=== PATIENT | male | born 1945 | race Caucasian/White ===

== ENCOUNTER 2019-03-12 06:35 | Outpatient (CLI) | payer MEDICARE ==
[~2019-03-12] VITALS: Ht 175.3 cm; Wt 80.0 kg
--- NOTE | ~2019-03-12 | HEMODYNAMI ---
PATIENT:NATALIYA RODRIGUEZ MEDICAL RECORD: [id number] : 49 LOCATION:[facility] ADMISSION DATE: 03/12/19 Generatedon:03/12/201910:18 Patient name: NATALIYA RODRIGUEZ Patient #: [id number] : 1945 Date of study: 03/12/2019 Page: Of Hemodynamic Procedure Report Patient Data Patient Demographics Procedure consent was obtained First Name: NATALIYA Gender: Male Last Name: JENNIFER : 1945 Middle Initial: D Age: 73 year(s) Patient #: [id number] Race: SSN: [id number] Additional ID: [id number] Contact details [address]: [address] [place] [address] [address] State: [place] City: [place] Zip code: [address] Past Medical History Allergies: No known allergies Admission Admission Data Admission Date: 03/12/2019 Admission Time: 6:35 Arrival Date: 03/12/2019 Arrival Time: 0:00 Admit Source: Other Insurance Payor: Medicare [facility] #: [id number] Height (in.): 69 BSA: 1.93 (m2) Height (cm.): 175.26 BMI: 25.1 (kg/m2) Weight (lbs.): 170 Weight (kg.): 77.11 Lab Results Lab Result Date: 03/12/2019 Lab Result Time: 0:00 Biochemistry Name Units Result Min Max BUN mg/dl 15 --(--*-)-- 7 18 Creatinine mg/dl 0.7 --(*---)-- 0.6 1.3 eGFR ml/min 90 --(*---)-- 90 120 AM eGFR ml/min 90 --(*---)-- 90 120 NONAFRICAN CBC Name Units Result Min Max Hemoglobin g/dl 10.9 *-(----)-- 13.5 17.5 Procedure Procedure Types Cath Procedure Diagnostic Procedure [facility] w/Coronaries Procedure Description Procedure Date Procedure Date: 03/12/2019 Procedure Start Time: 9:44 Procedure End Time: 10:14 Procedure Staff Name Function Sam Ramírez MD Performing Physician Jesica Fisher RT Monitor Rose Singh RT Monitor Suri Fuchs RN Nurse Jordyn Woodard RT Scrub Sukumar Perez CRNA Additional personnel Indication CAD Procedure Data Cath Procedure Fluoroscopy Diagnostic fluoroscopy Total fluoroscopy Time: 2 time: 2 min min Diagnostic fluoroscopy Total fluoroscopy dose: 649 dose: 649 mGy mGy Contrast Material Contrast Material Type Amount (ml) Isovue 300 94 Entry Location Entry Primary Successful Side Size Upsize Upsize Entry Closure Succes sful Closure Location (Fr) 1 (Fr) 2 (Fr) Remarks Device Remarks Femoral Right 5 Fr Exoseal artery Estimated blood loss: 5 ml Diagnostic catheters Device Type Used For End Catheter Placement MULTIPACK JL 4.0 5Fr Left Coronary catheter Angiography MULTIPACK 3DRC 5Fr Right Coronary catheter Angiography MULTIPACK Pigtail 5 Fr LV Angiography catheter Procedure Complications No complications Procedure Medications Medication Administration Route Dosage Oxygen etCO2 Nasal cannula 2 l/min Lidocaine 2% added to field 20 Heparin Flush Bag added to field 2 bags (1000units/500ml NS) 0.9% NaCl I.V. 100 ml/hr Refer to Anesthesia Notes for Sedation Medications Hemodynamics Rest BSA: 1.93 (m2) HGB: 10.9 (g/dl) O2 Consumption: Estimated: 232.69 (ml/min) O2 Co nsumption indexed: Estimated:120.56 (ml/min/m) Heart Rate: 83 (bpm) Pressure Samples Time Site Value (mmHg) Purpose Heart Use Rate(bpm) 9:56 LV 167/-4,20 Snapshot 97 9:57 AO 163/63(106) Pullback 97 9:57 LV 159/4,28 Pullback 97 Gradients Valve Time Site 1 Site 2 Mean SEP/DFP Peak To Heart Use (mmHg) (sec/min) Peak Rate (mmHg) (bpm) Aortic 9:57 LV AO 0 8 0 97 159/4,28 163/63(106) Calculations Valve P-P Mean Valve Index Valve Source Name Gradient Area Flow (cm2) Aortic 0 0 0 0 Snapshots Pre Cath Intra NCS Post Cath Vital Signs Time Heart Resp SPO2 etCO2 NIBP (mmHg) Rhythm Pain Sedation Rate (ipm) (%) (mmHg) Status Level (bpm) 9:11:31 80 11 97 32.3 168/83(124) NSR 0 (11) 10(A) , No pain 9:15:49 82 17 97 36 162/80(121) NSR 0 (11) 10(A) , No pain 9:20:09 84 14 97 21 139/82(123) NSR 0 (11) 10(A) , No pain 9:24:21 86 18 97 39.9 139/79(122) NSR 0 (11) 10(A) , No pain 9:28:33 85 16 96 26.3 159/79(136) NSR 0 (11) 10(A) , No pain 9:32:52 86 19 96 41.3 163/86(130) NSR 0 (11) 10(A) , No pain 9:37:12 87 18 96 33.8 163/83(130) NSR 0 (11) 10(A) , No pain 9:41:30 84 10 97 33.1 174/91(136) NSR 0 (11) 10(A) , No pain 9:45:40 91 16 94 18.8 161/89(130) NSR 0 (11) 9(A) , No pain 9:49:56 86 18 97 33.1 157/74(107) NSR 0 (11) 9(A) , No pain 9:55:28 92 17 95 37.6 168/72(112) NSR 0 (11) 9(A) , No pain 9:59:45 94 15 94 0.7 159/75(107) NSR 0 (11) 9(A) , No pain 10:04:04 96 16 94 0 165/82(110) NSR 0 (11) 9(A) , No pain 10:08:28 97 15 92 0 172/76(109) NSR 0 (11) 10(A) , No pain 10:14:02 96 15 96 21.8 157/78(108) NSR 0 (11) 10(A) , No pain Medications Time Medication Route Dose Verified Delivered Reason Notes Effe ctiveness by by 9:17:34 Oxygen etCO2 2 Sam Buffie used for Nasal l/min Darrell Fuchs electrical logging operator cannula 9:17:40 Lidocaine 2% added 20ml Sam Sam for local to vial Darrell Ramírez MD anesthetic field 9:17:47 Heparin Flush added 2 Sam Sam used for Bag to bags Darrell Ramírez MD procedure (1000units/500ml field NS) 9:17:57 0.9% NaCl I.V. 100 Sam Buffie Per ml/hr Darrell Fuchs RN physician 9:18:10 Refer to Sam Buffie Anesthesia Notes Darrell Fuchs RN for Sedation Medications Procedure Log Time Note 8:00:53 Informed consent obtained and on chart 8:04:31 Arrival Date: 03/12/2019 12:00:00 AM 8:05:43 Admit Source: Other 8:05:54 Insurance Payor : Medicare 8:06:02 Patient Height : 69 inches 8:06:12 Patient Weight : 170 lbs 8:53:52 Indication : CAD 8:54:01 Procedure Status Elective Heart Cath (OP). 8:54:05 Suri Fuchs RN sent for patient. Start room use. 8:54:08 Time tracking: Regular hours (M-F 7:00 - 5:00) 8:54:16 Plan of Care:Hemodynamics will remain stable., Cardiac rhythm will remain stable., Comfort level will be maintained., Respiratory function will remain adequate., Patient/ family verbilizes understanding of procedure., Procedure tolerated without complication., Recovers from procedure without complications.. 8:57:06 Lab Result : eGFR NONAFRICAN 90 ml/min 8:57:06 Lab Result : Hemoglobin 10.9 g/dl 8:57:06 Lab Result : eGFR AM 90 ml/min 8:57:06 Lab Result : BUN 15 mg/dl 8:57:06 Lab Result : Creatinine 0.7 mg/dl 8:58:07 ACC Patient presents with Stable Angina CCS Anginal Class 2--Slight limitation of ordinary activity. 8:58:52 ACCPatient has been prescribed/administered the following anti-anginal medication within the last 2 weeks: MIKE-Inhibitor 8:59:06 Patient received from Pre/Post Procedure Room to CCL 1 Alert and oriented. Tansferred to table in Supine position. 9:09:20 Warm blankets applied, and houston hugger turned on for patient comfort. 9:09:21 Correct patient and procedure confirmed by team. 9:09:22 ECG and BP/O2 sat monitors applied to patient. 9:09:23 Vital chart was started 9:09:26 Baseline sample Acquired. 9:09:35 Rhythm: sinus rhythm 9:09:38 Full Disclosure recording started 9:09:39 - 9:09:46 H&P Date Dictated: 03/12/2019 H&P Addendum completed by physician on da y of procedure. (MUST COMPLETE FOR ALL OUTPATIENTS), New H&P dictated by physician.. 9:09:49 Pre-procedure instructions explained to patient. 9:09:50 Pre-op teaching completed and patient verbalized understanding. 9:09:58 Family in waiting room. 9:10:02 Patient NPO since Midnight. 9:10:13 Patient allergic to No known allergies 9:10:20 Is the patient allergic to Iodine/contrast media? No. 9:10:24 Was the patient premedicated? Yes 9:10:29 Is patient on blood thinner?Yes 9:10:34 ACC The patient was administered the following blood thiners within the last 24 hours: ACCPlavix 9:10:36 Patient diabetic? Yes. 9:10:39 If diabetic: On Metformin? Yes 9:10:49 If on Metformin: Last Dose? 03/10/2019 9:10:52 ----Pre-sedation anethsthesia assessment.---- 9:10:59 Previous problem with sedation/anesthesia? No ? 9:11:06 Snore? Yes 9:11:08 Sleep apnea? No 9:11:11 Deviated septum? No 9:11:13 Opens mouth fully? Yes 9:11:16 Sticks out tongue? Yes 9:11:31 Airway obstruction? Yes copd/asthma 9:11:35 Dentures? Yes, IN TIGHT. ? 9:11:41 Pre procedure: right dorsailis pedis pulse 1+ Palpable, but thready & weak; easily obliterated 9:11:47 Pre procedure: left dorsailis pedis pulse 1+ Palpable, but thready & weak; easily obliterated 9:12:05 WEAK RADIAL. 9:12:11 Patient pain scale 0/10 ?. 9:12:31 IV patent on arrival in left wrist with 0.9% NaCl at [facility]. 9:12:40 Lab results completed and on chart. 9:15:40 Risk of Mortality: 0.2 9:15:46 Risk of blood transfusion: 1.1 9:15:52 Risk of UGO: 0.6 9:16:29 Right groin area was prepped with chlora-prep and draped in sterile fashion 9:16:34 Alarms reviewed by R. N. 9:16:35 Sharps counted by scrub and verified by R.N. 9:16:55 Use device set Femoral Dx 9:16:58 ACIST Syringe (72762) opened to sterile field. 9:16:58 Bag Decanter (2002S) opened to sterile field. 9:16:59 Medline Cath Pack ([id number]) opened to sterile field. 9:17:02 ACIST Hand Control (36638) opened to sterile field. 9:17:03 ACIST Manifold (84495) opened to sterile field. 9:17:04 DIAGNOSTIC Multipack 5Fr catheter set ([id number]) opened to sterile field. 9:17:05 Tegaderm 4 x 4 (1626W) opened to sterile field. 9:17:15 SHEATH 5FR [place] (FEM163) opened to sterile field. 9:17:16 EMERALD Guide Wire (392-487) opened to sterile field. 9:17:34 Oxygen 2 l/min etCO2 Nasal cannula was administered by Suri Fuchs RN; used for procedure; Verbal order read back and verified. 9:17:40 Lidocaine 2% 20ml vial added to field was administered by Sam Ramírez MD ; for local anesthetic; Verbal order read back and verified. 9:17:47 Heparin Flush Bag (1000units/500ml NS) 2 bags added to field was administered by Sam Ramírez MD; used for procedure; Verbal order read back and verified. 9:17:57 0.9% NaCl 100 ml/hr I.V. was administered by Suri Fuchs RN; Per physician; Verbal order read back and verified. 9:18:10 Refer to Anesthesia Notes for Sedation Medications was administered by Suri Fuchs RN; ; Verbal order read back and verified. 9:25:43 ACCPatient has been prescribed/administered the following anti-anginal medication within the last 2 weeks: Long-Acting Nitrates 9:36:56 Sukumar Perez CRNA present and monitoring patient for TIVA. 9:39:30 Zero performed for pressure channel P1 9:41:15 Physician arrived 9:41:17 --------ALL STOP TIME OUT------ 9:41:18 Final Timeout: patient, procedure, and site verified with staff and physician. All members of the team are in agreement. 9:41:21 Right groin site verified by team. 9:41:27 Fire Safety Assessment: A--An alcohol-based skin anteseptic being used preoperatively., C--Open oxygen or nitrous oxide is being used., D--An ESU, laser, or fiber-optic light is being used. 9:42:17 Physical assessment completed. ASA score P 3 - A patient with severe systemic disease as per Sam Ramírez MD. 9:42:24 1) 90+ Normal kidney functon but urine findings or structural abnormalities or genetic trait point to kidney disease. 9:42:29 Maximum allowable contrast dose (3.7 X eGFR X 0.75)250 ml. 9:42:46 Sedation plan: TIVA Medication:Propofol 9:44:48 Procedure started. 9:44:55 Local anesthetic to right femoral artery with Lidocaine 2% by Sam curry MD.INITIAL ACCESS ONLY 9:47:23 A 5 Fr sheath was inserted into the Right Femoral artery 9:47:57 A MULTIPACK JL 4.0 5Fr catheter was advanced over the wire and used for Left Coronary Angiography. 9:48:52 LCA angiography performed. 9:48:56 Injector settings: Ml/sec: 3, Volume: 6, 9:52:18 Catheter removed. 9:52:27 A MULTIPACK 3DRC 5Fr catheter was advanced over the wire and used for Right Coronary Angiography. 9:54:08 RCA angiography performed. 9:54:25 Injector settings: Ml/sec: 3, Volume: 6, 9:55:08 Catheter removed. 9:55:20 A MULTIPACK Pigtail 5 Fr catheter was advanced over the wire and used for LV Angiography. 9:56:30 LV gram done using AJ 9:56:43 LV hemodynamics recorded. 9:56:53 EF : 60 % 9:57:38 Injector settings: Ml/sec: 10, Volume: 20, 10:01:25 Catheter removed. 10:05:39 EXOSEAL 5Fr (EX500) opened to sterile field. 10:06:09 Sheath removed intact; hemostasis achieved with Exoseal to the Right Femoral artery. 10:06:14 Procedure ended.(Physican Out) 10:07:40 Fluoroscopy time 02.00 minutes. 10:07:47 Flurop Dose total: 649 10:07:47 Fluoroscopy dose: 649 mGy 10:07:55 Dose Area Product 32661 mGy/cm. 10:08:02 Contrast amount:Isovue 300 94ml. 10:08:07 Maximum allowable dose exceeded? No. 10:08:09 Sharps counted by scrub and verified by R.N. 10:08:14 Insertion/operative site no bleeding no hematoma. 10:08:20 Post-op/insertion site Right Femoral artery dressed using a 4 x 4 and Tegaderm. 10:08:28 Post right femoral artery:stable 10:08:34 Post Procedure Pulses reassessed and unchanged 10:08:59 Post-procedure physical assessment completed. ASA score P 3 - A patient with severe systemic disease as per Sam Ramírez MD. 10:09:04 Post procedure rhythm: unchanged. 10:09:08 Estimated blood loss: 5 ml 10:09:11 Post procedure instruction explained to patient.Patient verbalizes understanding. 10:09:12 Patient needs reinforcement of post procedure teaching. 10:09:47 Procedure and supply charges have been captured, reviewed, submitted an d are correct. 10:10:28 Procedure Complication : No complications 10:11:36 [facility] Findings: MVD- MD will discuss options w/ pt 10:13:18 Operative report dictated upon procedure completion. 10:13:22 See physician's report for complete and final results. 10:14:24 Vital chart was stopped 10:14:36 Report given to Pre/Post Procedure Room. 10:14:41 Patient transfered to Pre/Post Procedure Room with Stretcher. 10:14:45 Procedure ended. 10:14:45 Full Disclosure recording stopped 10:14:53 End room use (Document Last) Device Usage Item Name Manufacture Quantity Catalog Hospital Part Current Minimal L ot# / Number Charge Number Stock Stock Serial# Code ACIST Acist 1 27794 [id number] 195799 279609 20 Syringe Medical (45360) Systems Inc Bag Microtek 1 2001S 511139 35674 808937 5 Decanter Medical Inc. (2001S) Medline Medline 1 [id number] 60281 986276 5 Cath Pack ([id number]) ACIST Hand Acist 1 12085 333801 650078 997935 5 Control Medical (65642) Systems Inc ACIST Acist 1 44515 799209 104107 887215 5 Manifold Medical (88681) Systems Inc DIAGNOSTIC Cardinal 1 [id number] 078028 25349 083509 30 Multipack Health 5Fr catheter set (VG4709) Tegaderm 4 3M 1 1626W 500364 984186 990738 5 x 4 (1626W) SHEATH 5FR Terumo 1 MWC257 801580 386095 083603 5 [place] (BXB037) EMERALD Cardinal 1 502-455 473905 169042 146301 5 Guide Wire Health (502-455) MULTIPACK Cardinal 1 800566 5 JL 4.0 5Fr Health catheter MULTIPACK Cardinal 1 [id number] 5 3DRC 5Fr Health catheter MULTIPACK Cardinal 1 [id number] 5 Pigtail 5 Health Fr catheter EXOSEAL 5Fr Cardinal 1 EX500 149699 054362 802519 10 (EX500) Health Signature Audit [place] Stage Time Signature Unsigned Intra-Procedure 03/12/2019 Rose 10:15:24 AM Francisco RT(R) (CV) Intra-Procedure 03/12/2019 Suri Fuchs RN 10:17:22 AM Intra-Procedure 03/12/2019 Sam Ramírez MD 10:18:23 AM [facility] [address] [facility] [place] [address]
[~2019-03-12 06:35] MED LIST: GLUCOPHAGE500 MG PO
[2019-03-12] MEDS ORDERED: PEPCID AC20 MG PO (07:15)
[2019-03-12] MEDS ORDERED: PLAVIX75 MG PO (07:15)
[2019-03-12] MEDS ORDERED: LIPITOR40 MG PO (07:15)
[2019-03-12] MEDS ORDERED: LOPID600 MG PO (07:15)
[2019-03-12] MEDS ORDERED: FUROSEMIDE40 MG PO (07:15)
[2019-03-12] MEDS ORDERED: GLUCOPHAGE1000 MG PO (07:16)
[2019-03-12] MEDS ORDERED: LISINOPRIL20 MG PO (07:16)
[2019-03-12] MEDS ORDERED: SINGULAIR10 MG PO (07:17)
[2019-03-12] MEDS ORDERED: TOPROL XL25 MG PO (07:17)
[2019-03-12] MEDS ORDERED: RESTORIL15 MG PO (07:17)
[2019-03-12 07:34] VITALS: BP 157/90; Ht 175.3 cm; Wt 80.0 kg
[2019-03-12 08:24] LABS: BASOPHILS 0.3 % (0-2); EOSINOPHILS 4.3 % (0-7); HEMATOCRIT 32.9 % (42.0-54.0); HEMOGLOBIN 10.9 g/dL (13.5-17.5); IMMATURE GRANULOCYTES 0.3 % (0-5); LYMPHOCYTES 38.6 % (15-50); MCH 34.7 pg (26.0-34.0); MCHC 33.1 g/dL (31.0-37.0); MCV 104.8 fL (80.0-100.0); MEAN PLATELET VOLUME 11.6 fL (7.4-10.4); MONOCYTES 10.4 % (2-11); NEUTROPHILS 46.1 % (40-80); PLATELET COUNT 220 10x3/uL (130-400); RBC 3.14 10x6/uL (4.20-6.10); RDW 14.1 % (11.5-14.5); WBC 6.3 10x3/uL (4.8-10.8)
[2019-03-12 08:38] LABS: ALT (SGPT) 20 U/L (10-68); CALC OSMOLALITY 281 mosm/kg (275-300); CALCIUM 8.6 mg/dL (8.5-10.1); CARBON DIOXIDE 25.4 mmol/L (21.0-32.0); CHLORIDE - SERUM 107 mmol/L (98-107); CHOL - HDL RATIO 5.1 ratio (2.3-4.9); CHOLESTEROL, TOTAL 133 mg/dL (0-200); CREATININE - SERUM 0.7 mg/dL (0.6-1.3); GLUCOSE 153 mg/dL (74-106); HDL CHOLESTEROL 26 mg/dL (32-96); POTASSIUM - SERUM 4.1 mmol/L (3.5-5.1); SODIUM 139 mmol/L (136-145); TRIGLYCERIDE 405 mg/dL (30-200); UREA NITROGEN 15 mg/dL (7-18); eGFR NON AFRICAN AMERICAN > 90 mL/min (90-120)
--- NOTE | 2019-03-12 10:25 | NUR ---
PT RECEIVED VIA STRETCHER FROM MANAGER WELDING POST ANGIOGRAM FOR RECOVERY. PT AWAKE BUT DROWSY. PT PLACED ON CARDIAC MONITORS AND O2 AT 2L/NC. HR NSR RATE 86, BP 156/77, RR 16, O2 SAT 97. PT DENIES PAIN OR DISCOMFORT. 5FR EXOCELE TO R GROIN, DRESSING CDI NO BLEEDING OR HEMATOMA NOTED. DR TINSLEY IN ROOM AND SPOKE WITH PT'S S/O REGARDING PROCEDURE RESULTS AND PLAN OF CARE. IV PATENT INFUSING VIA ORDERS. PT INSTRUCTED TO KEEP HEAD ON PILLOW AND LEG STRAIGHT, HE VERBALIZED UNDERSTANDING. CALL LIGHT IN REACH
--- NOTE | 2019-03-12 10:41 | NUR ---
PT RESTING COMFORTABLY W/O COMPLAINTS. R GROIN SOFT, DRESSING CDI NO BLEEDING OR SWELLING NOTED. PEDAL PULSES PALPABLE. PO FLUIDS GIVEN. VSS. CALL LIGHT IN REACH, S/O AT BEDSIDE.
[2019-03-12 10:47] LABS: PLT FUNCT.(P2Y12) PLAVIX 255 PRU (194-418)
--- NOTE | 2019-03-12 11:18 | NUR ---
R GROIN SOFT, NO BLEEDING OR SWELLING NOTED. DR TINSLEY AT BEDSIDE DISCUSSING PLAN OF CARE W PT. HOB ELEVATED SLIGHTLY. PT VOIDED 300CC CLEAR YELLOW URINE IN URINAL. DENIES PAIN OR ADD'L NEEDS AT THIS TIME. VSS S/O AT BEDSIDE
--- NOTE | 2019-03-12 11:41 | NUR ---
HOB ELEVATED A LITTLE MORE. R KALEIGH REMAINS SOFT, DRESSING CDI NO BLEEDING OR HEMATOMA NOTED. LEG PINK AND WARM, PEDAL PULSES PALPABLE. HR 80, BP 148/76, O2 REMOVED, SAT ON RA 96. TOLERATED SANDWICH W/O NAUSEA. PT DENIES PAIN OR NEEDS AT THIS TIME. CALL LIGHT REMAINS IN REACH
--- NOTE | 2019-03-12 12:23 | NUR ---
DISCHARGE INSTRUCTIONS REVIEWED W S/O AND PT AND BOTH VERBALIZED UNDERSTANDING. IV REMOVED W CATH INTACT, MONITORS REMOVED. PT UP TO DRESS FOR DISCHARGE.
--- NOTE | 2019-03-12 12:30 | NUR ---
PT DISCHARGED VIA WC TO S/O IN PRIVATE VEHICLE. PT HAD ALL BELONGINGS, DISCHARGE PAPERWORK AND DR BURNS PAPERWORK IN HAND. PT ALSO HAD ALL PERSONAL BELONGINGS.
== END 2019-03-12 12:30 | disposition home or self-care (01) ==
LOC: D.CATH 06:35
PROVIDERS: ATTEND Internal Medicine Cardiovascular Disease
DX: I25.110 Atherosclerotic heart disease of native coronary artery with unstable angina pectoris (principal)

== ENCOUNTER 2019-03-17 09:50 | Inpatient (IN) | payer MEDICARE ==
[~2019-03-17] VITALS: Ht 175.3 cm; Wt 83.5 kg
[~2019-03-17 09:50] MED LIST changes: +FUROSEMIDE40 MG PO; +GLUCOPHAGE1000 MG PO; +LIPITOR40 MG PO; +LISINOPRIL20 MG PO; +LOPID600 MG PO; +PEPCID AC20 MG PO; +PLAVIX75 MG PO; +RESTORIL15 MG PO; +SINGULAIR10 MG PO; +TOPROL XL25 MG PO
[2019-03-17 12:42] LABS: BASOPHILS 0.3 % (0-2); EOSINOPHILS 4.4 % (0-7); HEMATOCRIT 35.9 % (42.0-54.0); HEMOGLOBIN 12.1 g/dL (13.5-17.5); IMMATURE GRANULOCYTES 0.3 % (0-5); LYMPHOCYTES 44.6 % (15-50); MCH 35.5 pg (26.0-34.0); MCHC 33.7 g/dL (31.0-37.0); MCV 105.3 fL (80.0-100.0); MEAN PLATELET VOLUME 11.3 fL (7.4-10.4); MONOCYTES 8.2 % (2-11); NEUTROPHILS 42.2 % (40-80); PLATELET COUNT 224 10x3/uL (130-400); RBC 3.41 10x6/uL (4.20-6.10); RDW 14.2 % (11.5-14.5); WBC 6.8 10x3/uL (4.8-10.8)
[2019-03-17 13:02] LABS: APTT 27.5 SECONDS (22.8-39.4); INR 0.97 (0.85-1.17); PROTIME 12.4 SECONDS (11.6-15.0)
[2019-03-17 13:19] LABS: ALBUMIN 3.8 g/dL (3.4-5.0); ALKALINE PHOSPHATASE 60 U/L (46-116); ALT (SGPT) 26 U/L (10-68); APPEARANCE CLEAR (CLEAR); BILIRUBIN NEGATIVE (NEGATIVE); CALC OSMOLALITY 279 mosm/kg (275-300); CALCIUM 8.7 mg/dL (8.5-10.1); CARBON DIOXIDE 28.6 mmol/L (21.0-32.0); CHLORIDE - SERUM 104 mmol/L (98-107); CHOLESTEROL, TOTAL 219 mg/dL (0-200); COLOR YELLOW (YELLOW); CREATININE - SERUM 0.9 mg/dL (0.6-1.3); GLUCOSE 114 mg/dL (74-106); GLUCOSE NEGATIVE (NEGATIVE); KETONE NEGATIVE (NEGATIVE); NITRITE NEGATIVE (NEGATIVE); PHOSPHOROUS 3.5 mg/dL (2.5-4.9); POTASSIUM - SERUM 4.5 mmol/L (3.5-5.1); PROTEIN NEGATIVE (NEGATIVE); PROTEIN - SERUM 7.9 g/dL (6.4-8.2); SODIUM 139 mmol/L (136-145); SPECIFIC GRAVITY 1.015 (1.005-1.020); T4 THYROXIN - FREE 0.81 ng/dL (0.76-1.46); UREA NITROGEN 15 mg/dL (7-18); URIC ACID 7.9 mg/dL (2.6-7.2); UROBILINOGEN NORMAL (NORMAL); eGFR NON AFRICAN AMERICAN 88 mL/min (90-120)
[2019-03-17 14:00] LABS: PLT FUNCT.(P2Y12) PLAVIX 273 PRU (194-418)
[2019-03-24] VITALS (41 sets, daily range): BP systolic 101–154; BP diastolic 48–86; BMI 25.5; BMI 32.1
[2019-03-24] MEDS ORDERED: NITROSTAT0.3 MG SL (06:11)
[2019-03-24] MEDS ORDERED: ZICAM (06:12)
[2019-03-24] MEDS ORDERED: BENADRYL25 MG PO (06:13)
[2019-03-24] MEDS ORDERED: ZYRTEC10 MG PO (06:13)
[2019-03-24] MEDS ORDERED: ADVIL200 MG PO (06:14)
[2019-03-24] MEDS ORDERED: BAYER CHEWABLE81 MG PO (06:15)
[2019-03-24 15:32] LABS: INR 1.23 (0.85-1.17)
--- NOTE | 2019-03-24 17:58 | NUR ---
1430-RECIEVED INTO CV5-ACCOMPANIED BY HEART TEAM-PLACED TO MONITOR SR-VENT PER RT-SOFT WRIST RESTRAINTS TO PROTECT AIRWAY-SEE GTT SHEET FOR IV FLUIDS-SCANT DRAINAGE TO CHEST TUBES-20CM SUCTION-NO AIRLEAK DETECTED-BK DRAIN SMALL EEYE-YAWRWKDSND-ABVI NOTIFIED FOR PORT CXR -DR SMITH AT [facility] 1445-XRAY COMPLETED -PT SPONT OPENED HAKS-ZGM-VHFQCTMOL TO 150 SYS-ORDERS RECIEVED FROM DR SMITH-CLEVIPREX STARTED -NTG AT 25MCG/MIN- 1515-NTG TURNED OFF-CLEVIPREX AT 2MG/MIN-DR SMITH AT [facility] -ADDRESSED FAMILY REGARDING SURGERY AND FINDINGS-STRESSED PT LIFESTYLE CHANGES NEED TO BE DONE- ORDER RECIEVED MORPHINE 2MG IVP- DIRECTED BY DR SMITH 1545-CLEVIPREX TURNED OFF 1630-DR SMITH NOTIFIED OF CI CHANGES 1.9-2.1-DOBUTREX GTT OFF DIRECTED 1800-PT AWAKE AND [id number] WELL
--- NOTE | 2019-03-24 18:32 | NUR ---
DR SMITH NOTIFIED OF CURRENT STATUS AND EXTUBATION PROTOCOL-DIRECTED TO KEEP SYS BP 120'S WITH NITRO-CONFIRMED REMOVAL OF SWAN MIKE AND CAP OFF
--- NOTE | 2019-03-24 19:19 | NUR ---
1900-EXTUBATED BY RT PER PROTOCOL-SHAYLA MCKEON D/C ORDERED PER PROTOCOL-RESTRAINTS REMOVED
--- NOTE | 2019-03-24 20:00 | NUR ---
PT IS AWAKE AND ALERT. C/O PAIN. MORPHINE GIVEN PER ORDER. PT REPORT A LITTLE RELIEF BUT SAYS HE IS STILL HURTING PRETTY BAD.
--- NOTE | 2019-03-24 23:30 | NUR ---
PT ASSISTED TO SIDE OF BED FOR 10 MIN. TOLERATED WELL
[2019-03-25] VITALS (76 sets, daily range): BP systolic 100–170; BP diastolic 48–96; Ht 175.3 cm; Wt 83.5 kg
--- NOTE | 2019-03-25 | NUR ---
PT TURNS WITH MINIMAL ASSISTANCE FREQUENTLY. SUPPORTED WITH PILLOWS.
--- NOTE | 2019-03-25 03:30 | NUR ---
ASSISTED TO SIDE OF BED. TOLERATED WELL
--- NOTE | 2019-03-25 06:00 | NUR ---
FSBS HAS BEEN IN TARGET RANGE FOR LAST 4 BLOOD SUGARS. NEXT CHECK DUE IN 2 HRS.
[2019-03-25 06:19] LABS: HEMOGLOBIN 10.5 g/dL (13.5-17.5); MCH 32.9 pg (26.0-34.0); MCHC 32.8 g/dL (31.0-37.0); MCV 100.3 fL (80.0-100.0); MEAN PLATELET VOLUME 10.3 fL (7.4-10.4); RBC 3.19 10x6/uL (4.20-6.10)
--- NOTE | 2019-03-25 06:40 | NUR ---
PT BATHED, LINEN CHANGED. ASSISTED TO CHAIR AT BEDSIDE. TOLERATED WELL. NITRO GTT RESTARTED AT 5 MCG/MIN.
[2019-03-25 06:51] LABS: ALKALINE PHOSPHATASE 49 U/L (46-116); ALT (SGPT) 30 U/L (10-68); BILIRUBIN - TOTAL 0.33 mg/dL (0.2-1.3); CALC OSMOLALITY 283 mosm/kg (275-300); CALCIUM 7.2 mg/dL (8.5-10.1); CARBON DIOXIDE 26.3 mmol/L (21.0-32.0); CHLORIDE - SERUM 106 mmol/L (98-107); CREATININE - SERUM 0.8 mg/dL (0.6-1.3); GLUCOSE 157 mg/dL (74-106); POTASSIUM - SERUM 4.3 mmol/L (3.5-5.1); PROTEIN - SERUM 6.3 g/dL (6.4-8.2); SODIUM 141 mmol/L (136-145); UREA NITROGEN 13 mg/dL (7-18); eGFR NON AFRICAN AMERICAN > 90 mL/min (90-120)
--- NOTE | 2019-03-25 07:00 | NUR ---
AWAKE AND ALERT. COMPLIANTING OF PAIN SKIN WARM AND DRY. UP IN CHAIR AT BEDSIDE. RIGHT IJ CENTRAL LINE INFUSING WITH PLASMALYTE AT 100 ML HOUR. NTG GTT AT 5 MCG/HOUR. INSULIN GTT AT 3 UNITS HOUR. CORDARON GTT AT 0.5MCG HOUR. ZINCEF AT 11.5ML HOUR. CHEST AND SUBSTERNAL DRESSING DRY AND INTACT CHEST TUBES X 3 TO 20 CM SUCTION SERSANG DRAINAGE. BK DRAIN INTACT BULB COMPRESSED BLOODY DRAINAGE IN CONTAINER SMALL AMOUNT. MARINELLI CATH PATENT DRAINING CLEAR RIDDHI URINE. IS TO 500 ML HOUR. MONITOR SR. REPOSITIONED NUMBEROUS TIMES PATIENT TRYING TO GET COMFORTABLE. CUSHION IN CHAIR, STATES HIS BUTT IS SO UNCOMFORTABLE. THEN STATES HIS BACK IS UNCOMFORTABLE.
--- NOTE | 2019-03-25 08:00 | NUR ---
PAIN MEDS GIVEN MINIMAL IMPROVEMENT NOTED. WEAK COUGH UNPRODUCTIVE.
--- NOTE | 2019-03-25 09:00 | NUR ---
REPOSITIONED NUMBEROUS TIMES STILL UNABLE TO GET COMFORTABLE WITH PAIN MEDS. IV MORPHINE GIVEN FREQ.
--- NOTE | 2019-03-25 10:00 | NUR ---
DR. SMITH HERE. ORDERS TO DISCONTINUE BLANK, STOP INSULIN GTT, SLIDING SCALE INSULIN. WEAN OFF NTG GTT PER CUFF BP. NOTIFIED OF CONTINUOS PAIN.
--- NOTE | 2019-03-25 10:27 | OP ---
PATIENT NAME: NATALIYA RODIRGUEZ MEDICAL RECORD: [id number] :49 LOCATION:[facility] ADMISSION DATE:03/24/19 SURGEON: RAHUL SMITH MD DATE OF OPERATION: 03/24/2019 SURGEON: Rahul Smith MD WATER PURIFIER OPERATOR: Sonu Tse. PROCEDURE PERFORMED: Coronary artery bypass graft times 3 (left internal mammary artery to LAD, reverse saphenous vein graft from aorta to obtuse marginal and aorta to posterior descending artery) endoscopic saphenous vein harvest. PREOPERATIVE DIAGNOSIS: Coronary artery disease. POSTOPERATIVE DIAGNOSIS: Coronary artery disease and severe hypertriglyceridemia. ANESTHESIA: General endotracheal anesthesia. ESTIMATED BLOOD LOSS: Total cardiopulmonary bypass with Cell Saver retransfusion, platelet 1 pack on fresh frozen plasma, and 2 packed red blood cells. COMPLICATIONS: None. SPECIMENS: None. CONDITION: Stable. DISPOSITION: CV-ICU. OPERATIVE FINDINGS: 1. Transesophageal echocardiography with trace AI and mitral regurgitation, good contractility and moderate left ventricular hypertrophy. 2. Good quality greater saphenous vein harvested endoscopically from the right lower extremity. 3. Layering blood and triglycerides consistent with severe hypertriglyceridemia, intraoperative triglyceride level greater than 900. 4. Distal ascending aortic plaque anteriorly and posteriorly. 5. LAD 2.0 mm with severe disease, good quality left internal mammary artery. 6. Obtuse marginal 1.5 mm vessel with severe disease. The ongoing circumflex vessel was small. 7. No acute marginal seen in large fatty heart. The PDA was 1.0 mm with bypass and a severe plaque and would not expect long-term patency of this graft. Posterolateral was not bypassable due to severe disease. 8. Separation cardiopulmonary bypass with no vasopressors, low dose dobutamine used briefly and discontinue in the ICU. OPERATIVE INDICATION: Coronary artery disease. OPERATIVE SUMMARY IN DETAIL: The patient was brought to the operating suite. General anesthesia was obtained. The patient was prepped and draped. Greater saphenous vein harvested endoscopically right lower extremity. Side branches OPERATIVE REPORT [id number] NATALIYA RODRIGUEZ were divided with electrocautery. The vessel was ligated proximally and distally, and removed. Side branches were tied and thin sites were oversewn. The leg was later closed in 2 layers. Median sternotomy incision was made. Subcutaneous tissue was divided with electrocautery. Sternum was divided with a saw. Left hemisternum was elevated. Left pleural cavity was entered. Left internal mammary artery and vein was taken down as a pedicle graft. Sternal retractor was placed. Pericardium was opened. Heparin was given. Aorta was cannulated. Dual stage venous cannula was inserted. The internal mammary was clipped distally and made ready for anastomosis. Activated clotting time was appropriately elevated. The patient was placed on cardiopulmonary bypass. Sites for distal anastomosis were selected. Retrograde cardioplegic cannula was inserted. Antegrade cardioplegic cannula was inserted. Crossclamp was placed. Cardioplegia was given antegrade and retrograde. After retrograde cardioplegia, there appeared to be some leakage from the distal coronary sinus that was oversewn with a pledgeted suture in that location. Antegrade cardioplegia was repeated at 50 minutes including down the completed vein graft. Distal anastomosis was performed in standard technique. Proximal anastomosis with single cross-clamp technique. Aortic root de-aired and flow restored. Proximal and distal anastomotic sites inspected for bleeding. The patient fully rewarmed, weaned from cardiopulmonary bypass stable. The patient was decannulated. The cannula sites were oversewn. Protamine was given. The graft lay appropriately. Hemostasis was ensured. Drains were placed in the mediastinum and left pleural cavity. Ventricular pacing wires were placed. Pericardial fat was loosely reapproximated in the midline. The internal mammary harvest was inspected for bleeding. The left chest was evacuated and irrigated. Sternum was closed with wires. Fascia was closed. Subcutaneous tissue was closed. Skin was closed. Dermabond was placed. The needle and sponge counts reported correct. The patient was taken to ICU in stable condition. TRANSINT:[id number] Voice Confirmation ID: [id number] DOCUMENT ID: [id number] RAHUL SMITH MD at 1027 CC: ROMULO ORO DO and MARCUS TINSLEY M.D. [id number] DICTATION DATE: 03/24/19 1500 RANGE MANAGER: 03/24/19 2143 ADM IN [facility] [address] [place] [address]
--- NOTE | 2019-03-25 11:00 | NUR ---
BLANK TRUJILLO'Fannie. INSULIN GTT OF. NTG GTT WEANED OFF. CONTINUE TO GIVE IV PAIN MEDS. WITH MINIMAL RELIEVE. FAMILY HERE UP DATE GIVEN. FEW BITES OF JELLO GIVEN. SIPS OF DIET COKE GIVEN
--- NOTE | 2019-03-25 12:00 | NUR ---
RETURNED TO BED WITH ASSISTANCES OF 2 NURSES. CENTRAL LINE DRESSING CHANGE IN BODY FORMER. PATIENT TOLERATED WELL. PO PAIN MEDS GIVEN WITH IV MORPHINE. CHEST TUBES REMOVED BY DEVANTE. PATIENT TOLERATED FAIR. NEW DRESSING APPLIED. BK INTACT BULB COMPRESSED. PACER WIRE SECURE TO SUBSTERNAL.
--- NOTE | 2019-03-25 14:00 | NUR ---
RESTING MORE COMFORTABLY. NAPPING AT INTERVALS. REPOSITIONED FOR COMFORT.
--- NOTE | 2019-03-25 16:00 | NUR ---
SAT UP ON SIDE OF BED PER PATIENT REQUEST. ENCOURAGE TO TAKE DEEP BREATH AND COUGH. WEAK COUGH FAIR EFFORT. TOLERATED FAIR. TOLERATES RETURNING TO BE POORLY. BK WITH MINIMAL DRAINAGE. DRESSINGS MID CHEST AND SUBSTERNAL DRY AND INTACT.
--- NOTE | 2019-03-25 18:00 | NUR ---
patient requesting more pain meds, states it has been over an hour. informed it has has only been 15 min. it is too early for pain meds.
--- NOTE | 2019-03-25 18:18 | MORECARE ---
CASE MANAGEMENT DISCHARGE SUMMARY PATIENT: NATALIYA RODRIGUEZ UNIT: [id number] ADM DATE: 03/24/19 AGE: 73 : 49 SEX: M ROOM/BED: [facility] AUTHOR: TESSY JONAS PHYSICIAN: REFERRING PHYSICIAN: ERIK SMITH MD DATE OF SERVICE: 03/25/19 Discharge Plan Patient Name: NATALIYA RODRIGUEZ [facility] : 1945 Planned Disposition: Anticipated Discharge Date: Discharge Date: Expected LOS: Initial Reviewer: [email or web address] Initial Review Date: 03/24/2019 Generated: 03/25/19 7:18 pm Comments DCP- Discharge Planning Updated by [id number]: Claudine Tran on 03/25/19 5:[address] CM attempted to meet with patient regarding discharge planning. Patient requested CM come back at a later time, he stated he is hurting to bad at this time. CM will continue to follow and assist as needed with discharge planning / needs Patient Name: NATALIYA RODRIGUEZ Page [phone] at 1818 All edits/amendments must be made on the electronic document DICTATION DATE: 03/25/191817 NURSING PROGRAM COORDINATOR: LEO 03/25/191817 RPT#: [id number] DC DATE: STATUS: ADM IN [facility] [address] [place] [address] END OF REPORT
--- NOTE | 2019-03-25 19:00 | NUR ---
SHIFT ASSESSMENT COMPLETE. PT IS SITTING UP IN BED, A&O X4, AND STATES THAT HE IS IN PAIN. REVIEWED HIS eMAR WITH HIM AND TOLD HIM WHEN HE COULD HAVE HIS NEXT DOSE OF PAIN MEDS. HE STATED THAT HE UNDERSTANDS. R IJ CVL S/L. RR SHALLOW, CRACKLES HEARD BILAT THROUGHOUT ALL LOBES. NC ON AT 2L/MIN HUMIDIFIED O2. S1S2 AUDIBLE, HR 105 SINUS TACH SHOWING ON MONITOR. MIDSTERNAL DRESSING CDI. SUBSTERNAL DRESSING CDI, BK DRAIN NOTED WITH SEROSANG FLUID, COMPRESSED. ABD SOFT, NONTENDER TO TOUCH, BS ACTIVE X4. CRITICORE MARINELLI INTACT DRAINING CONCENTRATED RIDDHI URINE. EUGENE HOSE ON. R LEG HARVEST SITES WELL APPROXIMATED. RADIAL AND PEDAL PULSES PALP. DRESSING ON R WRIST CDI. CALL LIGHT IN REACH, BED IN LOWEST POSITION. NO FURTHER NEEDS AT THIS TIME. WILL CONT WITH POC.
--- NOTE | 2019-03-25 19:10 | NUR ---
IS USE X10, WEAK EFFORT, 250-500 ML INSPIRED. WILL CONT TO ENCOURAGE IS USE.
--- NOTE | 2019-03-25 20:00 | NUR ---
SPOKE WITH DR. SMITH AND UPDATED HIM ON THE CHANGES. NEW ORDERS RECIEVED.
--- NOTE | 2019-03-25 21:00 | NUR ---
IS USE X10, WEAK EFFORT, 250-500 ML. PO MEDS TAKEN WITHOUT DIFFICULTY. REPOSITIONED FOR COMFORT. PARTIAL LINEN CHANGE PROVIDED. NO FURTHER NEEDS AT THIS TIME. WILL CONT WITH POC.
--- NOTE | 2019-03-25 22:00 | NUR ---
R IJ CVL DRESSING CHANGE VIA ROTOR BALANCER. PT TOLERATED WELL, DATED AND LABELED.
--- NOTE | 2019-03-25 23:00 | NUR ---
REASSESSMENT COMPLETE. NO CHANGES IN PT CONDITION. WILL CONT TO TITRATE NITRO GTT PER ORDERS. SEE FLOWSHEET FOR FURTHER DETAILS. VSS. CALL LIGHT IN REACH, WILL CONT WITH POC.
--- NOTE | 2019-03-25 23:44 | NUR ---
PRN PAIN MEDS ADMIN PER EMAR. REPOSITIONED FOR COMFORT. WILL CONT WITH POC.
[2019-03-26] VITALS (37 sets, daily range): BP systolic 88–137; BP diastolic 43–85
--- NOTE | 2019-03-26 01:00 | NUR ---
PT RESTING PEACEFULLY WITH NO SIGNS OF ACUTE DISTRESS NOTED. VSS. WILL CONT WITH POC.
--- NOTE | 2019-03-26 02:45 | NUR ---
PT STATES THAT HE IS FEELING NAUSEATED AND WOULD NOT DO HIS BREATHING TREATMENT. EDUCATED HIM ON THE BENEFITS OF THE [place]. PRN ZOFRAN ADMIN. NO FURTHER NEEDS AT THIS TIME. WILL CONT WITH POC.
--- NOTE | 2019-03-26 03:00 | NUR ---
REASSESSMENT COMPLETE. VSS. NO CHANGES IN PT CONDITION. SEE IV FLOWSHEET FOR NITRO GTT TITRATION. REPOSITIONED FOR COMFORT. NO NEEDS AT THIS TIME. WILL CONT TO MONITOR CLOSELY.
--- NOTE | 2019-03-26 03:33 | NUR ---
IS USE X10, BETTER EFFORT. 500 ML. WILL CONT TO ENCOURAGE IS USE.
--- NOTE | 2019-03-26 04:15 | NUR ---
NITRO GTT TITRATED OFF. BP 106/54, HR 93. WILL CONT TO MONITOR CLOSELY.
--- NOTE | 2019-03-26 05:00 | NUR ---
CHG BATH AND COMPLETE LINEN CHANGE PROVIDED. SUBSTERNAL DRESSING CHANGE PROVIDED PER ORDERS. PT UP IN CHAIR, GAIT STEADY, PARTIAL ASSIST. NO FURTHER NEEDS AT THIS TIME. WILL CONT WITH POC.
[2019-03-26 06:27] LABS: HEMATOCRIT 30.2 % (42.0-54.0); HEMOGLOBIN 9.8 g/dL (13.5-17.5); MCH 33.8 pg (26.0-34.0); MCHC 32.5 g/dL (31.0-37.0); MEAN PLATELET VOLUME 10.6 fL (7.4-10.4); RBC 2.9 10x6/uL (4.20-6.10); RDW 16.9 % (11.5-14.5); WBC 13.9 10x3/uL (4.8-10.8)
[2019-03-26 06:46] LABS: MCV 104.1 fL (80.0-100.0)
[2019-03-26 06:52] LABS: ALBUMIN 2.9 g/dL (3.4-5.0); ALKALINE PHOSPHATASE 52 U/L (46-116); ALT (SGPT) 28 U/L (10-68); BILIRUBIN - TOTAL 0.68 mg/dL (0.2-1.3); CALC OSMOLALITY 278 mosm/kg (275-300); CALCIUM 7.8 mg/dL (8.5-10.1); CARBON DIOXIDE 30.1 mmol/L (21.0-32.0); CHLORIDE - SERUM 102 mmol/L (98-107); GLUCOSE 166 mg/dL (74-106); PROTEIN - SERUM 6.7 g/dL (6.4-8.2); SODIUM 137 mmol/L (136-145); UREA NITROGEN 16 mg/dL (7-18); eGFR NON AFRICAN AMERICAN 78 mL/min (90-120)
--- NOTE | 2019-03-26 07:25 | NUR ---
SHIFT REPORT RECEIVED. PT UP IN CHAIR. ALERT AND ORIENTED. RATES PAIN 5/10 MOSTLY ON HIS BUTTOCKS. ON 2L O2 VIA NC. MIDSTERNAL INCISION WITH DRESSING C/D/I. SUBTERNAL DRESSING C/D/I. TPM WIRES COILED AND SECURED. LEFT BK DRAIN WITH SCANT AMOUNT OF SEROSANG DRAINAGE NOTED. RLE HARVEST SITES COAL BRIQUETTE MACHINE OPERATOR. WELL APPROXIMATED, NO SIGNS OF INFECTION NOTED. MARINELLI IN PLACE WITH CONCENTRATED URINE NOTED. CALL LIGHT IN REACH. WILL CONTINUE TO MONITOR.
--- NOTE | 2019-03-26 08:17 | NUR ---
Called received from Michael Steve pt's son. Brief update given. Call ligque answered pt asked to be sat up in chair. Coughed up scant amount of thick, arriaga mucus.
--- NOTE | 2019-03-26 08:35 | NUR ---
AM MEDS GIVEN. RATES PAIN 5/10. PERCOCET 10MG TAB GIVEN PER ORDERS. WILL CONTINUE TO MONITOR.
--- NOTE | 2019-03-26 09:10 | NUR ---
CALL LIGHT ANSWERED. ASSISTED PT TO STAND UP TO REPOSITION IN CHAIR. PT STATES THAT THE CHAIR IS UNCOMFORTABLE. EGG CRATE CUSHION IS IN PLACE. WILL CONTINUE TO MONITOR.
--- NOTE | 2019-03-26 10:24 | NUR ---
PT COMPLAINING OF BEING TIRED AND NOT GETTING ANY SLEEP DURING THE NIGHT. TRANSFERRED TO BED A THIS TIME. WILL GET BACK UP FOR LUNCH TIME. PULLS 500 ON I.S. WILL CONTINUE TO MONITOR.
--- NOTE | 2019-03-26 10:37 | NUR ---
DR. SMITH AT BEDSIDE. ORDERED TO LEAVE CATHETER IN FOR ACCURATE I&O.
--- NOTE | 2019-03-26 12:20 | NUR ---
AMBULATED WITH PT FROM ROOM TO NURSES DESK AND BACK TO CHAIR.
--- NOTE | 2019-03-26 13:38 | NUR ---
CALL LIGHT ANSWERED. PT WANTING TO GO BACK TO BED. INSTRUCTED THAT HE NEEDS TO STAY OUT OF BED MUCH POSSIBLE. PILLOW APPLIED UNDER LEGS. RATES PAIN IN LEGS 8/10 BURNING SENTATION. PERCOCET 10MG PO GIVEN. WILL CONTINUE TO MONITOR.
--- NOTE | 2019-03-26 14:05 | NUR ---
PT WANTING TO GO BACK TO BED. TEACHING PROVIDED ON REASON FOR BEING OUT OF BED. REPOSITIONED CHAIR FOR COMFORT. WILL CONTINUE TO MONITOR.
--- NOTE | 2019-03-26 15:27 | NUR ---
CALL LIGHT ANSWERED. REPOSITIONED CHAIR FOR COMFORT. COUGHED UP THICK, BAUTISTA MUCUS AT THIS TIME. RATES PAIN 6/10 AT INCISION SITE. PERCOCET 10MG TAB GIVEN PER ORDERS. WILL CONTINUE TO MONITOR.
--- NOTE | 2019-03-26 16:25 | MORECARE ---
CASE MANAGEMENT DISCHARGE SUMMARY PATIENT: NATALIYA RODRIGUEZ UNIT: [id number] ADM DATE: 03/24/19 AGE: 73 : 49 SEX: M [facility] AUTHOR: TESSY JONAS PHYSICIAN: REFERRING PHYSICIAN: ERIK SMITH MD DATE OF SERVICE: 03/26/19 Discharge Plan Patient Name: NATALIYA RODRIGUEZ [facility] [facility] 1945 Planned Disposition: Home Health Service Anticipated Discharge Date: Discharge Date: Expected LOS: Initial Reviewer: [email or web address] Initial Review Date: 03/26/2019 Generated: 03/26/19 5:25 pm DCP- Discharge Planning Updated by [email or web address]: Claudine Tran on 03/25/19 5:[address] CM attempted to meet with patient regarding discharge planning. Patient requested CM come back at a later time, he stated he is hurting to bad at this time. CM will continue to follow and assist as needed with discharge planning / needs Last DP export: 03/25/19 5:18 Patient Name: NATALIYA RODRIGUEZ Page [phone] at 1622 All edits/amendments must be made on the electronic document DICTATION DATE: 03/26/19 162 MEDICAL LABORATORY TECHNICIAN: LEO 03/26/19 1625 RPT#: [id number] DC DATE: STATUS: ADM IN [facility] [address] [place] [address] END OF REPORT
--- NOTE | 2019-03-26 16:35 | MORECARE ---
CASE MANAGEMENT DISCHARGE SUMMARY PATIENT: NATALIYA RODRIGUEZ UNIT: [id number] ADM DATE: 03/24/19 AGE: 73 : 49 SEX: M [facility] AUTHOR: SUMI,DOC PHYSICIAN: REFERRING PHYSICIAN: ERIK SMITH MD DATE OF SERVICE: 03/26/19 Discharge Plan Patient Name: NATALIYA RODRIGUEZ Facility: [facility]:[place] : 1945 Planned Disposition: Home Health Service Anticipated Discharge Date: Discharge Date: Expected LOS: Initial Reviewer: [email or web address] Initial Review Date: 03/26/2019 Generated: 03/26/19 5:34 pm Comments DCP- Discharge Planning Updated by [email or web address]: Farzaneh Barrientos on 03/26/19 3:[address] Patient Name: NATALIYA RODRIGUEZ Admission Status: Urgent Accout number: [id number] Admission Date: 03-24-2019 : 1945 Admission Diagnosis: Attending: ERIK SMITH Current LOS: 2 Anticipated DC Date: Planned Disposition: Home Health Service Primary Insurance: MEDICARE A & B Discharge Planning Comments: CM MET WITH PATIENT AFTER OBTAINING VERBAL CONSENT. PATIENT PLANS TO DC TO HOME ALONE BUT IS INTERESTED IN HH. [facility] SIGNED FOR [facility]. PATIENT STATES DOES NOT WANT REHAB. CM WILL FOLLOW AND ASSIST. Bottom Painter: Farzaneh Barrientos DCP- Discharge Planning Updated by [email or web address]: Claudine Tran on 03/25/19 5:[address] CM attempted to meet with patient regarding discharge planning. Patient requested CM come back at a later time, he stated he is hurting to bad at this time. CM will continue to follow and assist as needed with discharge planning / needs DCPIA - Discharge Planning Initial Assessment Updated by [email or web address]: Farzaneh Barrientos on 03/26/19 4:25 pm * Is the patient Alert and Oriented? Yes * PCP [facility] * Pharmacy [facility] * Preadmission Environment Home Alone * ADLs Independent * Equipment None * List name and contact numbers for known caregivers / representatives who currently or will assist patient after discharge: SISTER GILLIS, * Additional services required to return to the preadmission environment? Yes * Can the patient safely return to the preadmission environment? Yes * Has this patient been hospitalized within the prior 30 days at any hospital? No Coverage Notice Reviewer: [email or web address] Jamison Barrientos Notice Issued Date-Time: 03/26/2019 16:27 Notice Type: Patient Choice Letter Notice Delivered To: Patient Relationship to Patient: Intern Name: Delivery Method: HAND - Hand Delivered [place] Days: Prior Verbal Notification: Recipient Understood Notice: Yes Recipient Signature: Yes Med Rec Note Co-signed by Attending: Coverage Notice Comment: RYAN CASTILLO 4 Last DP export: 03/26/19 3:25 Patient Name: NATALIYA RODRIGUEZ Page [phone] at 1635 All edits/amendments must be made on the electronic document DICTATION DATE: 03/26/191633 CORN DETASSELER: LEO 03/26/191633 RPT#: [id number] DC DATE: STATUS: ADM IN [facility] [address] [place] [address] END OF REPORT
--- NOTE | 2019-03-26 17:45 | NUR ---
ATE ABOUT 30% OF DINNER TRAY. ASSISTED BACK TO BED. EMPTIED 10ML OF SEROUS DRAINAGE FROM BK DRAIN. NO FURTHER NEEDS AT THIS TIME. WILL CONTINUE TO MONITOR.
--- NOTE | 2019-03-26 18:22 | NUR ---
PULLED UP AND REPOSITIONED FOR COMFORT.
--- NOTE | 2019-03-26 19:30 | NUR ---
PT A/OX4, VOICES NEEDS, O2 @ 2L VIA N/C, RIGHT IJ CVL INTACT AND SL, DRESSING INTACT TO STERNAL INCISION, BK DRAIN INTACT AND COMPRESSED, MARINELLI PATENT TO BSD, NO C/O @ THIS TIME
--- NOTE | 2019-03-26 21:00 | NUR ---
PT AWAKE, TAKES PO MEDS WITHOUT DIFFICULTY, GIVEN PERCOCET FOR C/O PAIN AT CHEST INCISION SITE, VITALS STABLE
--- NOTE | 2019-03-26 23:00 | NUR ---
PT AWAKE, HOB ELEVATED 45 DEGREES, NO C/O, WILL CONT TO MONITOR
[2019-03-27] VITALS (24 sets, daily range): BP systolic 114–159; BP diastolic 50–85
--- NOTE | 2019-03-27 01:00 | NUR ---
PT SITTING UP ON SIDE OF BED, VOICES NEEDS, VITALS STABLE
--- NOTE | 2019-03-27 03:22 | NUR ---
PT AWAKE, LYING IN BED WITH NO C/O, VITALS STABLE
[2019-03-27 04:52] LABS: HEMOGLOBIN 8.9 g/dL (13.5-17.5); MCH 33.6 pg (26.0-34.0); MCHC 31.8 g/dL (31.0-37.0); MCV 105.7 fL (80.0-100.0); MEAN PLATELET VOLUME 10.5 fL (7.4-10.4); RBC 2.65 10x6/uL (4.20-6.10); RDW 16.4 % (11.5-14.5); WBC 11.3 10x3/uL (4.8-10.8)
[2019-03-27 05:03] LABS: ALBUMIN 2.6 g/dL (3.4-5.0); ALKALINE PHOSPHATASE 55 U/L (46-116); ALT (SGPT) 25 U/L (10-68); BILIRUBIN - TOTAL 0.47 mg/dL (0.2-1.3); CALCIUM 7.9 mg/dL (8.5-10.1); CARBON DIOXIDE 29.4 mmol/L (21.0-32.0); CHLORIDE - SERUM 101 mmol/L (98-107); GLUCOSE 156 mg/dL (74-106); POTASSIUM - SERUM 4.7 mmol/L (3.5-5.1); PROTEIN - SERUM 6.6 g/dL (6.4-8.2); SODIUM 135 mmol/L (136-145); eGFR NON AFRICAN AMERICAN 78 mL/min (90-120)
[2019-03-27 05:10] LABS: CALC OSMOLALITY 277 mosm/kg (275-300); UREA NITROGEN 26 mg/dL (7-18)
--- NOTE | 2019-03-27 06:00 | NUR ---
pt sitting on side of bed, bath done with assist, up to chair at bedside, no distress noted
--- NOTE | 2019-03-27 09:32 | NUR ---
NUTRITION F/U NURSING REPORTS PT IS TOLERATING DIABETIC DIET WITH ~25% INTAKE RECENT MEALS. PT UP TO CHAIR WITH PHYSICAL THERAPY ASSIST. WILL CONTINUE TO PROVIDE DIABETIC DIET AND MONITOR PO INTAKE. RD FOLLOWING
--- NOTE | 2019-03-27 10:37 | NUR ---
1015: DR. SMITH HERE. NEW ORDERS REC'D. 1025: IV STARTED WITH 20G ON 1ST ATTEMPT R VENTRAL FOREARM. 1030: Cynthia CHAIREZ DC'D. MANUAL PRESSURE HELD X 3 MIN. DRESSED WITH 2X2 AND TEGADERM. 1035: YVES TRUJILLO'Fannie.
--- NOTE | 2019-03-27 19:00 | NUR ---
REPORT RECEIVED. RECEIVED PATIENT IN BED, RESTING WITH EYES CLOSED. EASILY ROUSED AND ALERT, ORIENTED X 4. MONITORS CONNECTED TO PATIENT WITH ALARMS SET. VSS. ASSESSMENT COMPLETED PER FLOW SHEET WITH NO ACUTE DISTRESS OBSERVED. CALL LIGHT IN REACH AND ABLE TO UTILIZE TO MAKE NEEDS KNOWN.
--- NOTE | 2019-03-27 19:49 | NUR ---
ORAL CARE DONE WITH PERIDEX
--- NOTE | 2019-03-27 21:00 | NUR ---
AWAKE AND ALERT. PM MEDS TAKEN WITHOUT DIFF. CALL LIGHT IN REACH. VSS
--- NOTE | 2019-03-27 23:00 | NUR ---
REASSESSMENT COMPLETED PER FLOW SHEET WITH NO CHANGES OR ACUTE DISTRESS OBSERVED. VSS. CALL LIGHT IN REACH.
[2019-03-28] VITALS (23 sets, daily range): BP systolic 126–185; BP diastolic 49–84
--- NOTE | 2019-03-28 01:00 | NUR ---
RESTING WITH EYES CLOSED, EASILY ROUSED AND ALERT. VSS
--- NOTE | 2019-03-28 03:00 | NUR ---
AWAKE AND ALERT. VSS. CALL LIGHT IN REACH. ASSISTED WITH REPOSITIONING IN BED.
--- NOTE | 2019-03-28 05:00 | NUR ---
CHG BATH GIVEN. LINENS CHANGED. ASSISTED UP TO BEDSIDE CHAIR. LI WITHOUT DIFF. VSS. CALL LIGHT IN REACH
[2019-03-28 06:22] LABS: HEMATOCRIT 28.9 % (42.0-54.0); HEMOGLOBIN 9.1 g/dL (13.5-17.5); MCH 33.5 pg (26.0-34.0); MCHC 31.5 g/dL (31.0-37.0); MCV 106.3 fL (80.0-100.0); MEAN PLATELET VOLUME 10.4 fL (7.4-10.4); RBC 2.72 10x6/uL (4.20-6.10); RDW 16.1 % (11.5-14.5); WBC 8.6 10x3/uL (4.8-10.8)
[2019-03-28 07:07] LABS: ALBUMIN 2.6 g/dL (3.4-5.0); ALKALINE PHOSPHATASE 63 U/L (46-116); ALT (SGPT) 26 U/L (10-68); BILIRUBIN - TOTAL 0.48 mg/dL (0.2-1.3); CALC OSMOLALITY 281 mosm/kg (275-300); CALCIUM 8.3 mg/dL (8.5-10.1); CARBON DIOXIDE 28.5 mmol/L (21.0-32.0); CHLORIDE - SERUM 101 mmol/L (98-107); GLUCOSE 151 mg/dL (74-106); POTASSIUM - SERUM 4.7 mmol/L (3.5-5.1); PROTEIN - SERUM 6.8 g/dL (6.4-8.2); SODIUM 137 mmol/L (136-145); UREA NITROGEN 27 mg/dL (7-18); eGFR NON AFRICAN AMERICAN 78 mL/min (90-120)
--- NOTE | 2019-03-28 19:00 | NUR ---
REPORT RECEIVED. RECEIVED PATIENT IN BED, AWAKE AND ALERT. MONITORS CONNECTED TO PATIENT WITH ALARMS SET. SHIFT ASSESSEMENT COMPLETED PER FLOW SHEET WITH NO ACUTE DISTRESS OBSERVED. CALL LIGHT IN REACH AND ABLE TO UTILIZE TO MAKE NEEDS KNOWN.
--- NOTE | 2019-03-28 23:00 | NUR ---
REASSESSMENT COMPLETED PER FLOW SHEET WITH NO ACUTE DISTRESS OBSERVED. CALL LIGHT IN REACH
[2019-03-29] VITALS (25 sets, daily range): BP systolic 117–180; BP diastolic 33–85
--- NOTE | 2019-03-29 01:00 | NUR ---
RESTING WITH EYES CLOSED, EASILY ROUSED AND ALERT. VSS
--- NOTE | 2019-03-29 03:03 | NUR ---
RESTING WITH EYES CLOSED. ROUSES EASILY. VSS. REASSESSMENT COMPLETED PER FLOW SHEET WITH NO ACUTE DISTTRESS OBSERVED. CALL LIGHT IN REACH
--- NOTE | 2019-03-29 05:00 | NUR ---
CHG BATH GIVEN. LINENS CHANGED. DRSG TO SUBSTERNAL INCISIONS/BK CHANGED. UP TO BEDSIDE CHAIR. LI WITHOUT DIFF. CALL LIGHT IN REACH
[2019-03-29 05:29] LABS: HEMATOCRIT 31.2 % (42.0-54.0); MCH 33.6 pg (26.0-34.0); MCHC 32.1 g/dL (31.0-37.0); MCV 104.7 fL (80.0-100.0); MEAN PLATELET VOLUME 10.1 fL (7.4-10.4); RBC 2.98 10x6/uL (4.20-6.10); RDW 15.7 % (11.5-14.5); WBC 8.6 10x3/uL (4.8-10.8)
[2019-03-29 05:48] LABS: ALBUMIN 2.6 g/dL (3.4-5.0); ALKALINE PHOSPHATASE 68 U/L (46-116); ALT (SGPT) 24 U/L (10-68); BILIRUBIN - TOTAL 0.61 mg/dL (0.2-1.3); CALC OSMOLALITY 287 mosm/kg (275-300); CALCIUM 8.6 mg/dL (8.5-10.1); CARBON DIOXIDE 31.2 mmol/L (21.0-32.0); CHLORIDE - SERUM 101 mmol/L (98-107); GLUCOSE 166 mg/dL (74-106); POTASSIUM - SERUM 4.2 mmol/L (3.5-5.1); PROTEIN - SERUM 7.2 g/dL (6.4-8.2); SODIUM 140 mmol/L (136-145); UREA NITROGEN 26 mg/dL (7-18); eGFR NON AFRICAN AMERICAN 78 mL/min (90-120)
--- NOTE | 2019-03-29 19:00 | NUR ---
REPORT RECEIVED. RECEIVED PATIENT IN BED RESTING WITH EYES CLOSED, EASILY ROUSED AND ALERT. ORIENTED X 4. MONITORS CONNECTED TO PATIENT WITH ALARMS SET. VSS. ASSESSMENT COMPLETED PER FLOW SHEET WITH NO ACUTE DISTRESS OBSERVED. IV TO RFA SALINE LOCKED WITH SWAB CAPS COVERING UNUSED PORT. CALL LIGHT IN REACH AND ABLE TO UTILIZE TO MAKE NEEDS KNOWN.
--- NOTE | 2019-03-29 19:23 | NUR ---
ORAL CARE DONE WITH PERIDEX
--- NOTE | 2019-03-29 20:30 | NUR ---
PATIENT COMPLAINS OF BEING A LITTLE SHORT OF BREATH. OS SAT 88% ON RA. APPLIED O2 PER NC 1L/MIN. 02 SAT UP TO 94% PATIENT REPORTS IMPROVEMENT. WILL MONITOR.
--- NOTE | 2019-03-29 21:00 | NUR ---
PM MEDS TAKEN WITHOUT DIFF. DENIES FURTHER SOB. CONTINUES ON PER NC @1L/MIN. CALL LIGHT IN REACH
--- NOTE | 2019-03-29 23:00 | NUR ---
AWAKE AND ALERT. REASSESSMENT COMPLETED PER FLOW SHEET WITH NO ACUTE DISTRESS OBSERVED.. DENIES ANY FURTHER SOB. RESP EVEN AND UNLABORED. O2 CONTINUES 1L/MIN PER NC. CALL LIGHT IN REACH
[2019-03-30] VITALS (10 sets, daily range): BP systolic 99–162; BP diastolic 42–70
--- NOTE | 2019-03-30 01:00 | NUR ---
AWAKE AND ALERT. DENIES SHORTNESS OF BREATH. O2 SAT 97% ON 02@1L/MIN PER NC. REMOVED AT THIS TIME. INSTRUCTED TO DEEP BREATHE AND COUGH. INCENTIVE SPIROMETER USED. O2 SAT 92% ON RA. RESP EVEN AND UNLABORED WITH NO COMPLAINT OF SOB. CALL LIGHT IN REACH. WILL CONTINUE TO MONITOR
--- NOTE | 2019-03-30 03:00 | NUR ---
RESTING WITH EYES CLOSED, EASILY ROUSED AND ALERT. VSS. REASSESSMENT COMPLETED PER FLOW SHEET WITH NO ACUTE DISTRESS OBSERVED. 02 SAT 92% ON RA. DENIES SOB CALL LIGHT IN REACH
--- NOTE | 2019-03-30 05:00 | NUR ---
RESTING WITH EYES CLOSED, EASILY ROUSED AND ALERT. VSS
--- NOTE | 2019-03-30 05:45 | NUR ---
CHG BATH GIVEN. LINENS CHANGED. UP TO BEDSIDE CHAIR. DRSG TO SUBSTERNAL INCISIONS CHANGED. LI WITHOUT DIFF. CALL LIGHT IN REACH . VSS
--- NOTE | 2019-03-30 07:00 | NUR ---
REPORT RECEVIED FROM THE OFF GOING RN. SEE ASSESSMENT IN THE PTS FLOW SHEET. PT SITTING OOB IN HIS BEDSIDE CHAIR. RA. NSR ON THE MONITOR. BREAKFAST TRAY PROVIDED FOR THE PT. CALL LIGHT IN REACH. WILL CONT POC.
--- NOTE | 2019-03-30 08:14 | NUR ---
DR SMITH IN THE UNIT. NOTIFIED OF HYPERTENSION. SEE ORERS.
--- NOTE | 2019-03-30 08:43 | NUR ---
DR SMITH IN THE UNIT. OK TO DC HOME LATER TODAY.
--- NOTE | 2019-03-30 13:41 | NUR ---
OK TO DC TPM WIRES.
--- NOTE | 2019-03-30 13:50 | NUR ---
TPM WIRES DC PER ORDERS. PT TOLERATED WELL.
[2019-03-30] MEDS ORDERED: AMIODARONE HCL200 MG PO (13:59)
[2019-03-30] MEDS ORDERED: LISINOPRIL5 MG PO (14:00)
[2019-03-30] MEDS ORDERED: ASPIRIN EC81 M1 PO (14:01)
[2019-03-30] MEDS ORDERED: COLACE100 MG PO (14:02)
[2019-03-30] MEDS ORDERED: TOPROL XL50 MG PO (14:05)
[2019-03-30] MEDS ORDERED: PERCOCET 5-3251 TAB PO (14:06)
--- NOTE | 2019-03-30 14:10 | NUR ---
PIV DC WITH THE CATHETER TIP INTACT.
--- NOTE | 2019-03-30 15:35 | NUR ---
DISCHARGE INSTRUCTIONS WENT OVER WITH THE PT. NO QUESTIONS AT THIS TIME. PT BELONINGS ACCOUNTED. FOR PT DC'D WITH HIS FAMILY MEMBER DRIVING THE CAR. PT LEFT IN A STABLE CONDITION.
--- NOTE | 2019-03-30 20:13 | MORECARE ---
CASE MANAGEMENT DISCHARGE SUMMARY PATIENT: NATALIYA RODRIGUEZ UNIT: [id number] ADM DATE: 03/24/19 AGE: 73 : [birth year] SEX: M [facility] AUTHOR: SUMI,DOC PHYSICIAN: REFERRING PHYSICIAN: ERIK SMITH MD DATE OF SERVICE: 03/30/19 Discharge Plan Patient Name: NATALIYA RODRIGUEZ Facility: [facility]:[place] : 1945 Planned Disposition: Home Health Service Anticipated Discharge Date: Discharge Date: 03/30/2019 Expected LOS: Initial Reviewer: [id number] Initial Review Date: 03/26/2019 Generated: 03/30/19 9:12 pm Comments DCP- Discharge Planning Updated by [id number]: Farzaneh Barrientos on 03/26/19 4:[address] Patient Name: NATALIYA RODRIGUEZ Admission Status: Urgent Accout number: [id number] Admission Date: 03-24-2019 : 1945 Admission Diagnosis: Attending: ERIK SMITH Current LOS: 2 Anticipated DC Date: Planned Disposition: Home Health Service Primary Insurance: MEDICARE A & B Discharge Planning Comments: CM MET WITH PATIENT AFTER OBTAINING VERBAL CONSENT. PATIENT PLANS TO DC TO HOME ALONE BUT IS INTERESTED IN HH. [place] SIGNED FOR [facility]. PATIENT STATES DOES NOT WANT REHAB. CM WILL FOLLOW AND ASSIST. Patient Representative: Farzaneh Barrientos DCP- Discharge Planning Updated by [id number]: Claudine Tran on 03/25/19 6:[address] CM attempted to meet with patient regarding discharge planning. Patient requested CM come back at a later time, he stated he is hurting to bad at this time. CM will continue to follow and assist as needed with discharge planning / needs DCPIA - Discharge Planning Initial Assessment Updated by [email or web address]: Farzaneh Barrientos on 03/26/19 4:25 pm * Is the patient Alert and Oriented? Yes * PCP [facility] * Pharmacy [facility] * Preadmission Environment Home Alone * ADLs Independent * Equipment None * List name and contact numbers for known caregivers / representatives who currently or will assist patient after discharge: SISTER GILLIS, * Additional services required to return to the preadmission environment? Yes * Can the patient safely return to the preadmission environment? Yes * Has this patient been hospitalized within the prior 30 days at any hospital? No Coverage Notice Reviewer: [id number] Jamison Barrientos Notice Issued Date-Time: 03/26/2019 16:27 Notice Type: Patient Choice Letter Notice Delivered To: Patient Relationship to Patient: Sql Programmer Analyst Name: Delivery Method: HAND - Hand Delivered [place] Days: Prior Verbal Notification: Recipient Understood Notice: Yes Recipient Signature: Yes Med Rec Note Co-signed by Attending: Coverage Notice Comment: RYAN CASTILLO 4 Reviewer: [id number] Jamison Tran Notice Issued Date-Time: 03/30/2019 12:27 Notice Type: IM Discharge Notice Notice Delivered To: Patient Relationship to Patient: Self Sql Programmer Analyst Name: Delivery Method: HAND - Hand Delivered [place] Days: Prior Verbal Notification: Recipient Understood Notice: Yes Recipient Signature: Yes Med Rec Note Co-signed by Attending: Coverage Notice Comment: Last DP export: 03/26/19 4:35 Patient Name: NATALIYA RODRIGUEZ Page [id number] at 2013 All edits/amendments must be made on the electronic document DICTATION DATE: 03/30/192011 BRASS FINISHER: LEO 03/30/192011 RPT#: [id number] DC DATE:03/30/19 STATUS: DIS IN [facility] [address] [place] [address] END OF REPORT
--- NOTE | 2019-04-01 14:07 | TEE ---
PATIENT:NATALIYA RODRIGUEZ MEDICAL RECORD: [id number] LOCATION:[place] [address] AGE OF PATIENT: 73 ADMISSION DATE: 03/24/19 SEX: M REFERRING PHYSICIAN: INTERPRETING PHYSICIAN: ISABEL RODRÍGUEZ MD TRANSESOPHAGEAL ECHOCARDIOGRAM Date: 03/24/19 DEBRA CHARGE Y INDICATIONS: CABG PREMEDICATIONS: PATIENT'S RESPONSE PROCEDURE DOPPLER MEASUREMENTS: LVIT LA 4.0 PA RA LVOT RVOT Asc. Ao AV Gradient Peak AV Mean AV Area MV Gradient Peak MV Mean MV Area INTERPRETATION: Doppler: 2-D: EF 55% COLOR FLOW DOPPLER TRACE MR/AI NORMAL SALINE STUDY: MISCELLANOUS: DIAGNOSIS: PLAN: [employer] Farm Manager:Tricia Ramírez Celery Packer: Tricia PITTS COMMENTS: LUIS PATIENT DATE OF SERVICE: 03/24/2019 PROCEDURE: Transesophageal echo evaluation of valvular structures during bypass surgery. FINDINGS: 1. Left ventricular chamber size is within normal limits. Left ventricular systolic function is normal at 55% to 60%. 2. Left atrium, right atrium, right ventricle chamber sizes are within normal TRANSESOPHAGEAL ECHOCARDIOGRAM REPORT [id number] NATALIYA RODRIGUEZ limits. 3. Valvular structures have normal structure and motion. 4. Doppler interrogation reveals trace aortic insufficiency, trace mitral regurgitation, no other valvular insufficiency or stenosis. 5. No evidence of pericardial effusion or left ventricular thrombus. TRANSINT:[id number] Voice Confirmation ID: [id number] DOCUMENT ID: [id number] at 1407 CC: [id number] DICTATION DATE: 03/25/19 1107 HANDLE AND VENT MACHINE OPERATOR: 03/26/19 0128 DIS IN 03/30/19 [place] [id number]
== END 2019-03-30 15:36 | disposition home or self-care (01) | DRG 236 ==
LOC: D.SDCHOLD 11:30 → D.CVICU 03-24 05:46 → D.SDCHOLD 03-24 05:46 → D.CVICU 03-24 13:41
PROVIDERS: ADMIT Thoracic Surgery (Cardiothoracic Vascular Surgery); ATTEND Thoracic Surgery (Cardiothoracic Vascular Surgery)
PROC: 021109W Bypass Coronary Artery, Two Arteries from Aorta with Autologous Venous Tissue, Open Approach (ICD-10-PCS; 2019-03-24)
PROC: 06BP4ZZ Excision of Right Saphenous Vein, Percutaneous Endoscopic Approach (ICD-10-PCS; 2019-03-24)
PROC: 5A1221Z Performance of Cardiac Output, Continuous (ICD-10-PCS; 2019-03-24)
PROC: B24BZZ4 Ultrasonography of Heart with Aorta, Transesophageal (ICD-10-PCS; 2019-03-24)
PROC: 02100Z9 Bypass Coronary Artery, One Artery from Left Internal Mammary, Open Approach (ICD-10-PCS; principal; 2019-03-24 07:30)
DX: I25.10 Atherosclerotic heart disease of native coronary artery without angina pectoris (principal); E78.1 Pure hyperglyceridemia; I10 Essential (primary) hypertension

== ENCOUNTER 2020-03-15 08:28 | Day surgery (SDC) | payer MEDICARE ==
[~2020-03-15] VITALS: Ht 175.3 cm; Wt 90.9 kg
[~2020-03-15 08:28] MED LIST changes: +ADVIL200 MG PO; +AMIODARONE HCL200 MG PO; +ASPIRIN EC81 M1 PO; +BAYER CHEWABLE81 MG PO; +BENADRYL25 MG PO; +COLACE100 MG PO; +LISINOPRIL5 MG PO; +NITROSTAT0.3 MG SL; +PERCOCET 5-3251 TAB PO; +ZICAM; +ZYRTEC10 MG PO
[2020-03-15 09:07] LABS: HEMATOCRIT 35.2 % (42.0-54.0); HEMOGLOBIN 11.8 g/dL (13.5-17.5); MCH 34.3 pg (26.0-34.0); MCHC 33.5 g/dL (31.0-37.0); MCV 102.3 fL (80.0-100.0); MEAN PLATELET VOLUME 10.7 fL (7.4-10.4); RBC 3.44 10x6/uL (4.20-6.10); RDW 13.4 % (11.5-14.5); WBC 5.7 10x3/uL (4.8-10.8)
[2020-03-15 09:59] LABS: ANION GAP 16.6 mmol/L (8-16); CALCIUM 8.8 mg/dL (8.5-10.1); CARBON DIOXIDE 22.6 mmol/L (21.0-32.0); CREATININE - SERUM 1.1 mg/dL (0.6-1.3); POTASSIUM - SERUM 4.2 mmol/L (3.5-5.1)
[2020-03-15 10:13] VITALS: BP 162/85; Ht 175.3 cm; Wt 90.9 kg
[2020-03-15] MEDS ORDERED: FUROSEMIDE40 MG PO (10:35)
[2020-03-15] MEDS ORDERED: GLIMEPIRIDE2 MG PO (10:35)
--- NOTE | 2020-03-15 15:38 | NUR ---
1255 DRESSED. AWAKE & ALERT. PROVIDED WITH D/C INFORMATION INCLUDING: MED REC, SHEET LISTING NSAIDS TO AVOID, RTC APPT., & [facility] POST ENDOSCOPY D/C INSTRUCTIONS SHEET. VOICED UNDERSTANDING. TO PRIVATE CAR PER STAFF. HOME WITH SISTER & [id number]. Hailey SOL R.N.
--- NOTE | 2020-03-15 17:14 | HP ---
PATIENT: NATALIYA RODRIGUEZ MEDICAL RECORD: [id number] ACCOUNT: [id number] LOCATION:[place] : [birth year] ADMISSION DATE: 03/15/20 PCP: ROMULO ORO DO HISTORY AND PHYSICAL EXAMINATION CHIEF COMPLAINT: History of colon polyps. HISTORY OF PRESENT ILLNESS: The patient has been taking his Plavix. He last took his Plavix yesterday. He does have gastroesophageal reflux and that is the reason for the upper endoscopy. He has had no dysphagia. He has noted no blood in his stools. He does have a history of colon polyps and is here for surveillance colonoscopy. PAST MEDICAL AND SURGICAL HISTORY: Asthma, coronary artery disease, hypertension, non-insulin dependent diabetes mellitus, gastroesophageal reflux, coronary stents, history of CABG, COPD. SOCIAL HISTORY: Ex-smoker, quit 25 years ago. HOME MEDICATIONS: Please see the nursing list. ALLERGIES: No known drug allergies. PHYSICAL EXAMINATION: GENERAL: The patient does not appear acutely ill. He does not appear chronically ill. VITAL SIGNS: Reviewed. EARS: External ears appear normal. EYES: Extraocular movements are intact. NECK: Trachea is midline. CHEST: No intercostal retractions. PULMONARY: Nonlabored. No stridor. IMPRESSION: 1. Gastroesophageal reflux. 2. Resolved nausea. 3. History of colon polyps, in need of surveillance colonoscopy. PLAN: EGD and colonoscopy. TRANSINT:[id number] Voice Confirmation ID: [id number] DOCUMENT ID: [id number] JUSTINE KEARNS MD at 1714 CC: [id number] DICTATION DATE: 03/15/20 1054 COUPON AND BOND COLLECTION CLERK: 03/15/20 1349 [facility] [place] 03/15/20 [place] [id number]
--- NOTE | 2020-03-16 16:10 | OP ---
PATIENT NAME: NATALIYA RODRIGUEZ MEDICAL RECORD: [id number] :[birth year] LOCATION:D.OPS ADMISSION DATE: SURGEON: PARRISH KEARNS MD DATE OF OPERATION: 03/15/2020 PREOPERATIVE DIAGNOSES: 1. Gastroesophageal reflux disease. 2. History of colon polyps in need of surveillance colonoscopy. POSTOPERATIVE DIAGNOSES: 1. Gastroesophageal reflux disease. 2. History of colon polyps in need of surveillance colonoscopy. 3. Rule out Llanos's. 4. Inlet patch. 5. Poor colonic prep. 6. Moderate left-sided diverticulosis. PROCEDURE: 1. Esophagogastroduodenoscopy with antrum and distal esophageal biopsy was used to rule out Llanos's. 2. Total colonoscopy to cecum. SURGEON: Parrish Kearns MD LEAD TECHNICIAN: None. ESTIMATED BLOOD LOSS: Minimal. ANESTHESIA: IV sedation. COMPLICATIONS: None. The patient was conveyed to the endoscopy suite electively on 03/15/2020. IV sedation was induced by the anesthesia staff. A bite block was inserted. A gastroscope was inserted into the mouth. It was advanced easily into the hypopharynx. The esophagus was easily intubated as were the stomach and duodenum. Upon withdrawal, retroflexed and angulus views were obtained. I performed a hot antral biopsy as the patient has been on Plavix. I withdrew into the distal esophagus and performed some distal esophageal biopsies to rule out Llanos's. The endoscope was then withdrawn under direct vision. The patient was turned 180 degrees and placed in the Mann position. Digital rectal examination was performed. The prostate was symmetric without nodules and firm. A colonoscope was inserted through the anus. It was easily advanced to the cecum. The prep was inadequate. I could only rule out obstructing colonic polyps or masses. I irrigated and aspirated extensively. The pullback was greater than 20-minute pullback. There was a lot of solid material within the colon including stool as well as vegetable material. A retroflexed view was obtained in the rectum. I then unretroflexed the scope and it removed under direct vision. I will see the patient in my office in 2-3 weeks. I will plan for his next colonoscopy to take place in 3 years. TRANSINT:[id number] Voice Confirmation ID: [id number] DOCUMENT ID: [id number] OPERATIVE REPORT [id number] NATALIYA RODRIGUEZ ROBERT MD at 1610 CC: [id number] DICTATION DATE: 03/15/20 1240 CHIEF PHARMACIST: 03/15/202202 [facility] 03/15/20 [place] [id number] [place] [address]
== END 2020-03-15 12:55 | disposition home or self-care (01) ==
LOC: D.OPS 08:28
PROVIDERS: Anesthesiology; ATTEND Surgery
DX: K21.9 Gastro-esophageal reflux disease without esophagitis (principal); Z86.010 Personal history of colon polyps; K57.30 Diverticulosis of large intestine without perforation or abscess without bleeding